=== PATIENT | female | born 2000 | race Caucasian/White ===

== ENCOUNTER 2025-04-08 00:52 | Emergency (ER) | payer SELFPAY ==
[2025-04-08] MEDS: Ketorolac 60 MG/2 ML SDV IM ONE (01:15)
== END 2025-04-08 02:56 | disposition home or self-care (01) ==
LOC: JD.ED 00:52
DX: S80.01XA Contusion of right knee, initial encounter (principal); S80.02XA Contusion of left knee, initial encounter; S20.211A Contusion of right front wall of thorax, initial encounter; M62.838 Other muscle spasm; Z91.048 Other nonmedicinal substance allergy status; Z86.16 Personal history of COVID-19; Z90.49 Acquired absence of other specified parts of digestive tract; W22.8XXA Striking against or struck by other objects, initial encounter; Y93.89 Activity, other specified
CPT/HCPCS: 71045; 72170; 96372; 99284; A9270; J1885